=== PATIENT | female | born 1970 | race Caucasian/White ===

== ENCOUNTER 2018-11-21 13:51 | Emergency (ER) | payer OTHER ==
[2018-11-21 14:08] VITALS: BP 145/87; PULSE 68; TEMP 98.2; BMI 25.6
--- NOTE | 2018-11-21 15:01 | PDOC ---
History of Present Illness - General Chief Complaint: Eye Problem Stated Complaint: STYE ON THE LT EYE Time Seen by Provider: 11/21/18 14:41 - History of Present Illness Initial Comments: 11/21/18 14:56 48-year-old female without comorbidities presents for evaluation of left eye irritation 7 days. No systemic symptoms no changes in vision Past History - Past Medical History Allergies/Adverse Reactions: Allergies Allergy/AdvReac Type Severity Reaction Status Date / Time No Known Allergies Allergy Verified 11/21/18 14:05 Home Medications: Ambulatory Orders Erythromycin 0.5% Eye Ointment [Erythromycin 0.5% Eye Ointment -] 1 applic OS BID #1 tube 11/21/18 COPD: No - Suicide/Smoking/Psychosocial Hx Smoking History: Never smoked Review of Systems - Review of Systems HEENTM: Yes: See HPI, Eye Pain *Physical Exam - Vital Signs Last Vital Signs Temp Pulse Resp BP Pulse Ox 98.2 F 68 18 145/87 100 11/21/18 14:06 11/21/18 14:06 11/21/18 14:06 11/21/18 14:06 11/21/18 14:06 - Physical Exam Comments: 11/21/18 14:57 HEAD: NC/AT EYES: Conjuntiva clear; left upper lid is swollen and erythemic mild warmth MS: Full ROM in all joints without edema NEUROLOGIC: No gross sensory or motor deficits, NVID SKIN: Normal color and temperature no lesions or rashes Moderate Sedation - Procedure Monitoring Vital Signs: Procedure Monitoring Vital Signs Temperature 98.2 F 11/21/18 14:06 Pulse Rate 68 11/21/18 14:06 Respiratory Rate 18 11/21/18 14:06 Blood Pressure 145/87 11/21/18 14:06 O2 Sat by Pulse Oximetry (%) 100 11/21/18 14:06 *DC/Admit/Observation/Transfer Diagnosis at time of Disposition: Sty, external - Discharge Dispostion Disposition: HOME Condition at time of disposition: Stable Decision to Admit order: No - Referrals Referrals: Adali Devi MD [Primary Care Provider] - Samuel Woodard MD [Staff Physician] - Raj Zuniga MD [Non Staff, Medical] - Mike Hernandez [Non Staff, Medical] - Russell Cárdenas MD [Non Staff, Medical] - Vishal Alanis [Non Staff, Medical] - Ramses Lu [Non Staff, Medical] - Darryl Cox MD [Non Staff, Medical] - Bertha Grimaldo MD [Non Staff, Medical] - Morro Marshall MD [Staff Physician] - - Patient Instructions Printed Discharge Instructions: DI for [facility], [facility] Additional Instructions: Please follow-up with ophthalmology in one to 2 days for further evaluation and treatment options. Use the antibiotic ointment as directed twice daily. Return to the emergency room should symptoms worsen or go unresolved. - Post Discharge Activity
== END 2018-11-21 15:07 | disposition home or self-care (01) ==
LOC: JERFT 13:51
DX: H00.014 Hordeolum externum left upper eyelid (principal)
CPT/HCPCS: 99281-25